=== PATIENT | female | born 1990 | race Caucasian/White ===

== ENCOUNTER 2017-04-29 22:53 | Emergency (ER) | payer OTHER ==
[~2017-04-29] VITALS: Ht 167.6 cm; Wt 61.2 kg
[2017-04-29] MEDS ORDERED: ALBU18HF2 IH (23:04)
--- NOTE | 2017-04-29 23:47 | NUR ---
DR. SANCHES AT BEDSIDE FOR MSE.
[2017-04-30] MEDS: predniSONE 10 MG TABLET PO ONE (00:06)
[2017-04-30] MEDS ORDERED: predniSONE 10 MG TABLET ONE (00:19)
[2017-04-30] MEDS ORDERED: predniSONE 50 MG TABLET ONE (00:20)
[2017-04-30] MEDS: ALBUTEROL SULFATE 2.5 MG/3 ML NEBU NEB ONE (00:20)
[2017-04-30] MEDS: IPRATROPIUM BROMIDE 0.5 MG/2.5 ML NEBU NEB ONE (00:21)
[2017-04-30] MEDS ORDERED: IPRATROPIUM BROMIDE 0.5 MG/2.5 ML NEBU ONE (00:29)
[2017-04-30] MEDS ORDERED: ALBUTEROL SULFATE 2.5 MG/3 ML NEBU ONE (00:29)
--- NOTE | 2017-04-30 02:14 | NUR ---
Patient discharged to home in stable conditon. Written and verbal after care instructions given. Patient verbalizes understanding of instructions.
[2017-04-30 02:15] VITALS: BP 111/71
== END 2017-04-30 02:15 | disposition home or self-care (01) ==
LOC: ER 22:56
DX: J45.909 Unspecified asthma, uncomplicated (principal); Z88.1 Allergy status to other antibiotic agents
CPT/HCPCS: A4663; J3590; J7512